=== PATIENT | female | born 1995 ===

== ENCOUNTER 2021-03-26 17:58 | Emergency (ER) | payer MEDICAID ==
[~2021-03-26] VITALS: Ht 162.6 cm; Wt 63.5 kg
[2021-03-26 20:38] VITALS: BP 135/83
== END 2021-03-26 21:10 | disposition home or self-care (01) ==
LOC: ER 17:58
DX: S62.617A Displaced fracture of proximal phalanx of left little finger, initial encounter for closed fracture (principal); W23.0XXA Caught, crushed, jammed, or pinched between moving objects, initial encounter; Y93.89 Activity, other specified; Y92.89 Other specified places as the place of occurrence of the external cause; Y99.8 Other external cause status
CPT/HCPCS: 29130; 73130